=== PATIENT | male | born 1935 | race Caucasian/White ===

== ENCOUNTER 2018-01-29 21:32 | Emergency (ER) | payer MEDICARE, OTHER ==
[~2018-01-29] VITALS: Ht 170.2 cm; Wt 68.8 kg
[~2018-01-29 21:32] MED LIST: HYDR-2768 PO; LISI40TA PO; MULT-65 PO; ST JTAB PO
[2018-01-29 21:41] VITALS: BP 136/79; PULSE 60; RESP 18; TEMP 97.8; O2SAT 96
[2018-01-29] MEDS ORDERED: VITA100021 SL (21:59)
[2018-01-29] MEDS ORDERED: LISI-515 PO (21:59)
[2018-01-29] MEDS ORDERED: METO25TA3 PO (21:59)
[2018-01-29] MEDS ORDERED: ASPI-516 CHEW (21:59)
[2018-01-29] MEDS ORDERED: HYDR25TA5 PO (21:59)
[2018-01-29] MEDS ORDERED: TETANUS/DIPHTHERIA TOXOID ADULT 0.5 ML VIAL IM ONE (22:00)
[2018-01-29] MEDS ORDERED: ACETAMINOPHEN/HYDROcodone 325 MG/5 MG TAB PO ONE (22:00)
[2018-01-29] MEDS ORDERED: LIDOCAINE 1%/EPINEPHrine 1:100,000 SOLN 20 ML VIAL INFIL ONE (22:00)
[2018-01-29] MEDS ORDERED: ONDANSETRON ODT 4 MG TAB PO ONE (22:00)
--- NOTE | 2018-01-29 22:33 | RADRPT ---
EXAM DATE/TIME: 01/29/2018 22:08 [facility] COMPARISON: No previous studies available for comparison. INDICATIONS : Trauma. Fall. Facial lacerations. RADIATION DOSE: 62.46 CTDIvol (mGy) MEDICAL HISTORY : None SURGICAL HISTORY : None. ENCOUNTER: Initial ACUITY: 1 day PAIN SCALE: 0/10 LOCATION: Bilateral cranial TECHNIQUE: Multiple contiguous axial images were obtained of the head. Using automated exposure control and adj ustment of the mA and/or kV according to patient size, radiation dose was kept as low as reasonably a chievable to obtain optimal diagnostic quality images. DICOM format image data is available electro nically for review and comparison. FINDINGS: CEREBRUM: The ventricles are normal for age. No evidence of midline shift, mass lesion, hemorrhage or acute in farction. No extra-axial fluid collections are seen. POSTERIOR FOSSA: The cerebellum and brainstem are intact. The 4th ventricle is midline. The cerebellopontine angle i s unremarkable. EXTRACRANIAL: The visualized portion of the orbits is intact. SKULL: The calvaria is intact. No evidence of skull fracture. CONCLUSION: No bleed or other acute intracranial abnormality. Rafi Whipple MD on January 29, 2018 at 22:30 Board Certified Radiologist. This report was verified electronically.
--- NOTE | 2018-01-29 22:35 | RADRPT ---
EXAM DATE/TIME: 01/29/2018 22:08 [facility] COMPARISON: No previous studies available for comparison. INDICATIONS : Trauma. Fall. Facial lacerations. RADIATION DOSE: 25.64 CTDIvol (mGy) MEDICAL HISTORY : None SURGICAL HISTORY : None. ENCOUNTER: Initial ACUITY: 1 day PAIN SCORE: 0/10 LOCATION: Bilateral facial TECHNIQUE: Volumetric scanning of the facial bones was performed. Using automated exposure control and adjustme nt of the mA and/or kV according to patient size, radiation dose was kept as low as reasonably achiev able to obtain optimal diagnostic quality images. DICOM format image data is available electronicall y for review and comparison. FINDINGS: ORBITS: The orbital and infraorbital osseous structures are intact. The retroconal structures have a normal configuration. No radiopaque foreign bodies are seen. NASAL BONE: The nasal bone and maxillary spine are intact ZYGOMATIC ARCHES: Symmetric without evidence of fracture. SINUSES: Mucoperiosteal thickening of the ethmoid and maxillary air cells. NASAL CAVITY: The nasal septum is intact and midline. The lacrimal ducts are intact. SOFT TISSUES: Hematoma of both cheeks, right worse than left. Globes are intact. Post septal soft tissues are raquel l. INTRACRANIAL: No intracranial air seen. CRIBIFORM PLATE: Grossly intact. CONCLUSION: Bilateral cheek contusions. No facial fracture. Mild chronic paranasal sinus disease. Rafi Whipple MD on January 29, 2018 at 22:31 Board Certified Radiologist. This report was verified electronically.
--- NOTE | 2018-01-29 23:40 | PD ---
HPI Chief Complaint: Laceration/Skin Injury Time Seen by Provider: 21:46 Travel History International Travel<30 days: No Contact w/Intl Traveler<30days: No Traveled to known affect area: No History of Present Illness HPI 82-year-old male experienced a mechanical fall bending over earlier today. He ended up lacerating the right forehead against steps outside. No loss of consciousness occurred. Severe bleeding resolved with application of pressure dressing. Pain initially moderate. No chest pain or shortness of breath. No nausea vomiting or fever. Mechanism mechanical. Onset sudden. 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) Cardiovascular Problems: No Diabetes: No Diminished Hearing: No Glaucoma: No Hepatitis: No Hiatal Hernia: No Hypertension: Yes Medical other: No Respiratory: No Immunizations Current: Yes Thyroid Disease: No Tetanus Vaccination: Unknown Influenza Vaccination: Yes Past Surgical History Abdominal Surgery: No Cardiac Surgery: No Ear Surgery: No Endocrine Surgery: No Eye Surgery: Yes (CATARACT SURGERY 2009-BOTH EYES) Genitourinary Surgery: Yes (PROSTATE GLAND SEED IMPLANT 1997) Gynecologic Surgery: No Joint Replacement: Yes (bilat total knees) Neurologic Surgery: No Oral Surgery: Yes (TONSILLECTOMY & ADENOIDECTOMY) Pacemaker: No Thoracic Surgery: No Tonsillectomy: Yes (AND ADENOIDECTOMY) Other Surgery: Yes (CARTILAGE REMOVED, PILONIDOL CYST REMOVED 1954) Social History Alcohol Use: Yes (MIX DRINKS 2-3 A DAY) Tobacco Use: No Substance Use: No Allergies-Medications (Allergen,Severity, Reaction): Coded Allergies: No Known Allergies (Verified Adverse Reaction, Unknown, 01/29/18) Reported Meds & Prescriptions Reported Meds & Active Scripts Active Reported Vitamin B-12 (Cyanocobalamin) 1,000 Mcg Subl 1,000 Mcg SL DAILY Aspirin 81 Mg Chew 81 Mg CHEW DAILY Metoprolol Tartrate 25 Mg Tab 12.5 Mg PO DAILY Hydrochlorothiazide 25 Mg Tab 25 Mg PO DAILY Lisinopril 20 Mg Tab 20 Mg PO BID Review of Systems Except as stated in HPI: all other systems reviewed are Neg General / Constitutional: No: Fever Physical Exam Narrative GENERAL: 82-year-old male well-nourished well-developed appropriate distress Vital Signs Date Time Temp Pulse Resp B/P (MAP) Pulse Ox O2 Delivery O2 Flow Rate FiO2 01/29/18 21:41 97.8 60 18 136/79 (98) 96 SKIN: Warm and dry. HEAD: Atraumatic. Normocephalic. There is a laceration overlying the right forehead through the right eyebrow into the region of the right upper eyelid estimated length is about 5 cm from and and is somewhat circular pattern, consistent with a quarter [place]. There is a very small laceration overlying the bridge of the nose about 1/2 cm and another laceration overlying the left maxillary process approximately 2 cm in length and linear. EYES: Pupils equal and round. No scleral icterus. No injection or drainage. Generalized periorbital ecchymosis and edema on the right side. There is no traumatic hyphema. There is motion of the eyes is normal bilaterally with conjugate gaze. ENT: No nasal bleeding or discharge. Mucous membranes pink and moist. NECK: Trachea midline. No JVD. CARDIOVASCULAR: Regular rate and rhythm. RESPIRATORY: No accessory muscle use. Clear to auscultation. Breath sounds equal bilaterally. GASTROINTESTINAL: Abdomen soft, non-tender, nondistended. Hepatic and splenic margins not palpable. MUSCULOSKELETAL: Extremities without clubbing, cyanosis, or edema. No obvious deformities. NEUROLOGICAL: Awake and alert. No obvious cranial nerve deficits. Motor grossly within normal limits. Five out of 5 muscle strength in the arms and legs. Normal speech. PSYCHIATRIC: Appropriate mood and affect; insight and judgment normal. Data Data Last Documented VS Vital Signs Date Time Temp Pulse Resp B/P (MAP) Pulse Ox O2 Delivery O2 Flow Rate FiO2 01/29/18 21:41 97.8 60 18 136/79 (98) [address] Brain W/O Iv Contrast(Rout) (01/29/18 21:46) Lidocai-Epi 1%-1:100,000 Inj (Xylocaine- (01/29/18 22:00) Tetanus/Diphtheria Tox Adult (Tetanus/Di (01/29/18 22:00) Ct Facial Bones W/O Iv Cont (01/29/18 ) Acetamin-Hydrocod 325-5 Mg ([place] 5-325 (01/29/18 22:00) Ondansetron Odt (Zofran Odt) (01/29/18 22:00) Ed Discharge Order (01/29/18 23:38) MDM Medical Decision Making Medical Screen Exam Complete: Yes Emergency Medical Condition: Yes Medical Record Reviewed: Yes Differential Diagnosis Intracranial hemorrhage, laceration, abrasion, facial bone fracture Narrative Course Last Impressions Head CT 01/29/186 Signed Impressions: Service Date/Time: Monday, January 29, 2018 22:08 - CONCLUSION: No bleed or other acute intracranial abnormality. Rafi Whipple MD Maxillofacial CT 01/29/18 0000 Signed Impressions: Service Date/Time: Monday, January 29, 2018 22:08 - CONCLUSION: Bilateral cheek contusions. No facial fracture. Mild chronic paranasal sinus disease. Rafi Whipple MD Lacerations repaired by the undersigned. Procedures Procedure Narrative LACERATION LOCATION: Right forehead LENGTH: [5 cm NUMBER OF STITCHES/DIANN:9 external, 2 internal REPAIR: The area of the laceration was prepped with Betadine and sterilely draped. The laceration was infiltrated with lidocaine with epinephrine. The wound was copiously irrigated and explored without evidence of foreign body, tendon injury or neurovascular injury. The wound was closed using 5-0 Ethilon and 6-0 Ethilon. 5-0 Vicryl was placed internally. this was a 2 layer repair. A sterile dressing was applied. The patient was advised to keep the dressing clean and dry. Patient tolerated the procedure well. LACERATION LOCATION: Bridge of nose LENGTH: 1.5 cm NUMBER OF STITCHES/DIANN: 4 REPAIR: The area of the laceration was prepped with Betadine and sterilely draped. The laceration was infiltrated with lidocaine with epinephrine the wound was copiously irrigated and explored without evidence of foreign body, tendon injury or neurovascular injury. The wound was closed using [6-0 Ethilon] . This was a [single layer repair. A sterile dressing was applied. The patient was advised to keep the dressing clean and dry. Patient tolerated the procedure well. LACERATION LOCATION: Left maxillary face LENGTH: 2 cm NUMBER OF STITCHES/DIANN: Dermabond REPAIR: The area of the laceration was prepped with Betadine and sterilely draped. The wound was copiously irrigated and explored without evidence of foreign body, tendon injury or neurovascular injury. The wound was closed using Dermabond. This was a Dermabond layer repair. A sterile dressing was applied. The patient was advised to keep the dressing clean and dry. Patient tolerated the procedure well. Diagnosis Primary Impression: Face lacerations Qualified Codes: S01.81XA - Laceration without foreign body of other part of head, initial encounter Additional Impressions: Fall Qualified Codes: W19.XXXA - Unspecified fall, initial encounter Periorbital contusion of right eye Qualified Codes: S05.11XA - Contusion of eyeball and orbital tissues, right eye, initial encounter Referrals: RETURN TO ER IN 7 DAYS FOR SUTURE REMOVAL 1 week Med/Other Pt SpecificInfo: No Change to Meds Disposition: 01 DISCHARGE HOME Condition: Stable Ruddy Frank MD Jan 29, 2018 23:40
[2018-01-30 00:21] VITALS: BP 136/72; PULSE 62; RESP 18; O2SAT 97
== END 2018-01-30 00:24 | disposition home or self-care (01) ==
LOC: PHED 21:32
DX: S01.81XA Laceration without foreign body of other part of head, initial encounter (principal); S05.11XA Contusion of eyeball and orbital tissues, right eye, initial encounter; I10 Essential (primary) hypertension; W19.XXXA Unspecified fall, initial encounter; Z23 Encounter for immunization
CPT/HCPCS: 12013; 12052; 70450; 70486; 90471; 90714

== ENCOUNTER 2018-02-05 08:05 | Emergency (ER) | payer MEDICARE, OTHER ==
[~2018-02-05] VITALS: Ht 170.2 cm; Wt 67.2 kg
[~2018-02-05 08:05] MED LIST changes: +ASPI-516 CHEW; -HYDR-2768 PO; +HYDR25TA5 PO; +LISI-515 PO; -LISI40TA PO; +METO25TA3 PO; -MULT-65 PO; -ST JTAB PO; +VITA100021 SL
[2018-02-05 08:09] VITALS: BP 140/76; PULSE 61; RESP 16; TEMP 97.4; O2SAT 98
--- NOTE | 2018-02-05 08:49 | PD ---
HPI Chief Complaint: Wound/Suture/Staple Re-Check Time Seen by Provider: 08:22 Travel History International Travel<30 days: No Contact w/Intl Traveler<30days: No Traveled to known affect area: No History of Present Illness HPI Patient is an 82-year-old male who comes in for suture removal. He was here January 29 after a fall and had sutures placed above his right eye and to the bridge of his nose. He says he has not had any issues since the fall. He denies any pain to the area, any redness, any leakage of fluids. It was a mechanical fall at the time. He denies any additional falls. Severity is mild. 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) Cardiovascular Problems: No Diabetes: No Diminished Hearing: No Glaucoma: No Hepatitis: No Hiatal Hernia: No Hypertension: Yes Respiratory: No Immunizations Current: Yes Thyroid Disease: No Tetanus Vaccination: < 5 Years Influenza Vaccination: Yes Past Surgical History Abdominal Surgery: No Cardiac Surgery: No Ear Surgery: No Endocrine Surgery: No Eye Surgery: Yes (CATARACT SURGERY 2009-BOTH EYES) Genitourinary Surgery: Yes (PROSTATE GLAND SEED IMPLANT 1997) Gynecologic Surgery: No Joint Replacement: Yes (bilat total knees) Neurologic Surgery: No Oral Surgery: Yes (TONSILLECTOMY & ADENOIDECTOMY) Pacemaker: No Thoracic Surgery: No Tonsillectomy: Yes (AND ADENOIDECTOMY) Other Surgery: Yes (CARTILAGE REMOVED, PILONIDOL CYST REMOVED 1954) Social History Alcohol Use: Yes (MIX DRINKS 2-3 A DAY) Tobacco Use: No Substance Use: No Allergies-Medications (Allergen,Severity, Reaction): Coded Allergies: No Known Allergies (Verified Adverse Reaction, Unknown, 02/05/18) Reported Meds & Prescriptions Reported Meds & Active Scripts Active Reported Vitamin B-12 (Cyanocobalamin) 1,000 Mcg Subl 1,000 Mcg SL DAILY Aspirin 81 Mg Chew 81 Mg CHEW DAILY Metoprolol Tartrate 25 Mg Tab 12.5 Mg PO DAILY Hydrochlorothiazide 25 Mg Tab 25 Mg PO DAILY Lisinopril 20 Mg Tab 20 Mg PO BID Review of Systems General / Constitutional: No: Fever, Chills Eyes: No: Blurred Vision HENT: No: Headaches Cardiovascular: No: Chest Pain or Discomfort Respiratory: No: Shortness of Breath Gastrointestinal: No: Nausea, Vomiting Musculoskeletal: No: Edema Skin: No Rash, No Itching Neurologic: No: Weakness, Dizziness Physical Exam Narrative GENERAL: Awake and alert, in no acute distress. SKIN: Focused skin assessment warm/dry. Healing ecchymosis to the right side of the face. Well-healed wounds to the right eyebrow as well as the bridge of the nose. There is no erythema or warmth or signs of infection. HEAD: Atraumatic. Normocephalic. EYES: Pupils equal and round. No scleral icterus. Extraocular movements intact. Subconjunctival hemorrhage present on the right. ENT: Mucous membranes pink and moist. CARDIOVASCULAR: Regular rate and rhythm. No murmur appreciated. RESPIRATORY: No accessory muscle use. Clear to auscultation. Breath sounds equal bilaterally. MUSCULOSKELETAL: No obvious deformities. No clubbing. No cyanosis. No edema. NEUROLOGICAL: Awake and alert. No obvious cranial nerve deficits. Motor grossly within normal limits. Normal speech. Data Data Last Documented VS Vital Signs Date Time Temp Pulse Resp B/P (MAP) Pulse Ox O2 Delivery O2 Flow Rate FiO2 02/05/18 08:09 97.4 61 16 140/76 (97) 98 MDM Medical Decision Making Medical Screen Exam Complete: Yes Emergency Medical Condition: Yes Medical Record Reviewed: Yes Differential Diagnosis Suture removal versus wound versus infection Narrative Course Patient is an 82-year-old male who comes in for suture removal. Exam shows well -healed wounds, no evidence of infection. 13 sutures removed without incident. Patient advised to keep the wounds clean and dry. Advised return anytime for any worsening symptoms. Diagnosis Primary Impression: Visit for suture removal Patient Instructions: General Instructions, Stitches Removal (ED) Additional Instructions: Keep your wounds clean and dry. Return anytime for any worsening symptoms. Disposition: 01 DISCHARGE HOME Condition: Stable Meggan Collazo MD February 05, 2018 08:49
== END 2018-02-05 09:01 | disposition home or self-care (01) ==
LOC: PHED 08:05
DX: Z48.02 Encounter for removal of sutures (principal); I10 Essential (primary) hypertension; Z85.46 Personal history of malignant neoplasm of prostate; Z85.828 Personal history of other malignant neoplasm of skin; Z79.82 Long term (current) use of aspirin; Z79.899 Other long term (current) drug therapy
CPT/HCPCS: 99281